=== PATIENT | female | born 1965 | race African-American/Black ===

== ENCOUNTER 2016-09-26 11:58 | Emergency (ER) | payer OTHER ==
[~2016-09-26] VITALS: Ht 160 cm; Wt 97.2 kg
[~2016-09-26 11:58] MED LIST: ANTIVERT25 MG PO; ASPIRIN81 M2 PO; CYCLOBENZAPRINE10 MG PO; IRON325 MG PO; LISINOPRIL20 MG PO; LODINE200 MG PO; MULTIVITAMIN1 EAC2 PO; TRAMADOL HCL50 MG PO; TYLENOL REGULA325 MG PO; VITAMIN D31000 UNIT PO; WELLBUTRIN SR150 MG PO; ZOFRAN4 MG PO
[2016-09-26 12:53] LABS: EOSINOPHIL COUNT 0.5 K/uL (0-0.3); HEMATOCRIT 42.4 % (36.0-46.0); IMMATURE GRANULOCYTE (%) 0.5 % (0.0-0.7); INSTRUMENT ABS NEUTROPHIL CT 3.6 K/uL; LYMPHOCYTE COUNT 1.4 K/uL (1.0-2.8); MCH 30.7 PG (29.0-34.0); MCHC 32.8 G/DL (30.0-36.0); MCV 93.6 FL (83-99); MONOCYTE (%) 3.8 % (3-12); MONOCYTE COUNT 0.2 K/uL (0-0.8); NEUTROPHIL (%) 61.9 % (45-76); NEUTROPHIL COUNT 3.6 K/uL (1.8-6.4); PLATELET COUNT 182 K/uL (156-360); RBC DIS.WIDTH-CV 13.7 % (11.8-14.6); RED BLOOD COUNT 4.53 M/uL (3.80-5.20); WHITE BLOOD COUNT 5.8 K/uL (4.1-10.2)
[2016-09-26 13:02] LABS: CHLORIDE 109 mEq/L (99-109); POTASSIUM 4.5 mEq/L (3.7-5.4); SODIUM 140 mEq/L (136-147)
[2016-09-26 13:03] LABS: GLUCOSE 87 mg/dL (70-99)
[2016-09-26 13:05] LABS: ANION GAP 7 MEQ/L (2-14)
[2016-09-26 13:07] LABS: GFR ESTIMATE (CALCULATED) > 59 mL/min/
[2016-09-26 13:08] LABS: UREA NITROGEN (BUN) 14 mg/dL (9-23)
[2016-09-26 13:14] LABS: TROP-I INTERPRETATION NEGATIVE; TROPONIN-I < 0.01 ng/mL (0.0-0.30)
[2016-09-26 15:21] LABS: TROP-I INTERPRETATION NEGATIVE; TROPONIN-I < 0.01 ng/mL (0.0-0.30)
[2016-09-26] MEDS ORDERED: ZITHROMAX Z-PA250 MG PO (15:43)
[2016-09-26 16:22] VITALS: BP 139/93
== END 2016-09-26 16:22 | disposition home or self-care (01) ==
LOC: EME 11:58
PROVIDERS: Emergency Medicine
DX: R07.89 Other chest pain (principal); J40 Bronchitis, not specified as acute or chronic; I10 Essential (primary) hypertension; D64.9 Anemia, unspecified; F17.200 Nicotine dependence, unspecified, uncomplicated; Z79.82 Long term (current) use of aspirin
CPT/HCPCS: 71010; 71275; 80048; 84484; 85025; 85379; 93005; 94640; 99281; 99285; J1885; J7030